=== PATIENT | female | born 1970 | race Caucasian/White ===

== ENCOUNTER 2020-01-12 14:58 | Outpatient (CLI) | payer OTHER, SELFPAY ==
--- NOTE | ~2020-01-12 | MM_ITS ---
EXAMINATION: MM screening alexandra BI w cabrera HISTORY: Screening mammogram, family history of breast cancer in her mother. TECHNIQUE: Craniocaudal and mediolateral oblique 3-D tomosynthesis images were obtained and synthetic 2-D images were generated. CAD analysis was submitted and interpreted. COMPARISON: 08/01/2018, 01/03/2018, 12/28/2017, 12/28/2014 BREAST PARENCHYMAL COMPOSITION: The breasts are heterogeneously dense, which may obscure small masses . FINDINGS: RIGHT BREAST: There are punctate calcifications in the posterior third of the upper outer quadrant of the right breast. Patient was due for follow-up of these calcifications in January 2019. Given that the calcifications are without suspicious change since original diagnostic mammogram performed on 12/15, these are considered benign. There is a subareolar mass of the breast. LEFT BREAST: There is no evidence of suspicious mass, calcification, or architectural distortion to s uggest malignancy. There has been no significant interval change. IMPRESSION: 1. Subareolar right breast mass. 2. Additional mammographic views and possible breast ultrasound are recommended. BI-RADS Category 0: Incomplete: Needs additional imaging evaluation. Reviewed, dictated and finalized at location A. IMPRESSION: 1. Subareolar right breast mass. 2. Additional mammographic views and possible breast ultrasound are recommended . BI-RADS Category 0: Incomplete: Needs additional imaging evaluation.
== END 2020-01-12 14:59 | disposition home or self-care (01) ==
PROVIDERS: Visit Provider Obstetrics & Gynecology
DX: Z12.31 Encounter for screening mammogram for malignant neoplasm of breast (principal); N63.41 Unspecified lump in right breast, subareolar
CPT/HCPCS: 77063; 77067

== ENCOUNTER 2020-02-04 13:17 | Outpatient (CLI) | payer OTHER, SELFPAY ==
--- NOTE | ~2020-02-04 | MMUS_ITS ---
EXAMINATION: MM diagnostic mammo unilat RT, US breast RT limited HISTORY: Subareolar right breast mass reported on 01/12/2020 screening mammogram TECHNIQUE: Additional 3-D tomosynthesis images of were performed and synthetic 2-D images were genera fletcher. CAD analysis was submitted and interpreted. High resolution breast ultrasound was performed. COMPARISON subareolar right: 01/12/2020 bilateral digital screening mammogram 08/01/2018 and 01/03/2018 diagnostic right digital mammogram examinations 12/28/2017 bilateral digital screening mammogram BREAST PARENCHYMAL COMPOSITION: The breasts are heterogeneously dense, which may obscure small masses . FINDINGS: MAMMOGRAPHIC FINDINGS: No interval mass or architectural distortion of the right breast is evident compared to 12/28/2017. Mi nimal benign calcification. ULTRASOUND: No sonographic evidence of subareolar mass or abnormal shadowing is evident. IMPRESSION: 1. No mammographic evidence of malignancy 2. Routine annual mammographic screening is recommended. BI-RADS Category 2: Benign finding(s). Reviewed, dictated and finalized at location A. IMPRESSION: 1. No mammographic evidence of malignancy 2. Routine annual mammographic screening is recommended. BI-RADS Category 2: Benign finding(s).
== END 2020-02-04 13:18 | disposition home or self-care (01) ==
LOC: ANHIMG 13:18
PROVIDERS: Visit Provider Obstetrics & Gynecology
DX: R92.8 Other abnormal and inconclusive findings on diagnostic imaging of breast (principal)
CPT/HCPCS: 76642; 77065

== ENCOUNTER 2021-06-03 07:36 | Outpatient (CLI) | payer OTHER, SELFPAY ==
--- NOTE | ~2021-06-03 | MM_ITS ---
EXAMINATION: MM screening laexandra BI w cabrera HISTORY: Screening mammogram TECHNIQUE: Craniocaudal and mediolateral oblique 3-D tomosynthesis images were obtained and synthetic 2-D images were generated. CAD analysis was submitted and interpreted. COMPARISON: 02/04/2020 diagnostic right mammogram and limited right breast ultrasound 12/0201/12/2020 bilateral digital screening mammogram / diagnostic right mammogram 01/03/2018 diagnostic right mammogram 12/28/2017 bilateral screening mammogram BREAST PARENCHYMAL COMPOSITION: The breasts are heterogeneously dense, which may obscure small masses . FINDINGS: There is no evidence of suspicious mass, calcification, or architectural distortion to sugg est malignancy in either breast. There has been no suspicious interval change. IMPRESSION: 1. No mammographic evidence of malignancy. 2. Recommend routine screening mammography in one year. BI-RADS Category 1: Negative Reviewed, dictated and finalized at location A. BODY INSPECTOR
== END 2021-06-03 07:37 | disposition home or self-care (01) ==
LOC: ANHIMG 07:38
PROVIDERS: Visit Provider Obstetrics & Gynecology
DX: Z12.31 Encounter for screening mammogram for malignant neoplasm of breast (principal)
CPT/HCPCS: 77063; 77067

== ENCOUNTER 2022-09-19 08:13 | Outpatient (CLI) | payer OTHER, SELFPAY ==
--- NOTE | ~2022-09-19 | MM_ITS ---
EXAMINATION: MM screening alexandra BI w cabrera HISTORY: Screening TECHNIQUE: Craniocaudal and mediolateral oblique 3-D tomosynthesis images were obtained and synthetic 2-D images were generated. CAD analysis was submitted and interpreted. COMPARISON: Comparison to multiple prior studies sequentially, with oldest reviewed study dated 12/28. BREAST PARENCHYMAL COMPOSITION: The breasts are heterogeneously dense, which may obscure small masses FINDINGS: There is no evidence of suspicious mass, calcification, or architectural distortion to sugg est malignancy in either breast. There has been no suspicious interval change. IMPRESSION: 1. No mammographic evidence of malignancy. 2. Recommend routine screening mammography in one year. BI-RADS Category 1: Negative Reviewed, dictated and finalized at location A.
== END 2022-09-19 08:14 | disposition home or self-care (01) ==
LOC: ANHIMG 08:15
PROVIDERS: Visit Provider Obstetrics & Gynecology
DX: Z12.31 Encounter for screening mammogram for malignant neoplasm of breast (principal)
CPT/HCPCS: 77063; 77067

== ENCOUNTER 2023-04-11 06:41 | Outpatient (CLI) | payer OTHER, SELFPAY ==
--- NOTE | ~2023-04-11 | MR_ITS ---
EXAMINATION: MR brain IAC wo/w con DATE: 04/11/2023 07:54 INDICATION: Sensorineural hearing loss, asymmetrical. TECHNIQUE: Magnetic resonance imaging (MRI) of the brain, brainstem, and internal auditory canals was performed without and with 10 mL MultiHance intravenous contrast. COMPARISON: None. FINDINGS: There are scattered areas of nonspecific increased T2-weighted signal intensity in the cere bral white matter, which is within normal limits for the patient's age. There is no intracranial hemo rrhage, acute infarction, or abnormal intracranial mass lesion. The ventricles are normal in size. Th ere is a mucous retention cyst in left maxillary sinus. The orbits are normal. The internal auditory canals and inner ears and tympanic cavities are normal. The mastoid air cells are normal. IMPRESSION: 1. Normal aging brain. Reviewed, dictated and finalized at location A. SITION OF CARE SPECIALIST IMPRESSION: 1. Normal aging brain.
== END 2023-04-11 06:42 | disposition home or self-care (01) ==
PROVIDERS: Visit Provider Otolaryngology
DX: H90.3 Sensorineural hearing loss, bilateral (principal)
CPT/HCPCS: 70553; A9577

== ENCOUNTER 2024-08-05 10:02 | Outpatient (CLI) | payer OTHER, SELFPAY ==
--- NOTE | ~2024-08-05 | MM_ITS ---
EXAMINATION: MM screening alexandra BI w cabrera HISTORY: Screening TECHNIQUE: Craniocaudal and mediolateral oblique 3-D tomosynthesis images were obtained and synthetic 2-D images were generated. CAD analysis was submitted and interpreted. COMPARISON: Comparison to multiple prior studies sequentially, with oldest reviewed study dated 01/03. BREAST PARENCHYMAL COMPOSITION: Dense: The breasts are heterogeneously dense, which may obscure small masses FINDINGS: There is no evidence of suspicious mass, calcification, or architectural distortion to sugg est malignancy in either breast. There has been no suspicious interval change. IMPRESSION: 1. No mammographic evidence of malignancy. 2. Recommend routine screening mammography in one year. BI-RADS Category 1: Negative Reviewed, dictated and finalized at location A.
--- OUTSIDE RECORDS SUMMARY | 2024-08-05 11:28 | XMS_ITS | Patient Health Record ---
Author Organization [facility] Address [address] [place] [address] Care Team Providers Care Director Risk Name Role Phone Koby No Primary Care Provider ALLERGIES No Known Allergies REASON FOR REFERRAL No Information MEDICATIONS Medication SIG (Take, Route, Frequency, Duration) Notes Start Date End Date Status Medrol 4 MG as directed Orally Daily 12/21/2022 Active SOCIAL HISTORY Tobacco Use: Social History Observation Description Date Details (start date - stop date) Current Smoker 04/15/1991 - NA Sex Assigned At : Social History Observation Description Sex Assigned At Unknown Tobacco Use/Smoking Question Answer Notes Are you a current user When did you start using? 04/15/1991 How often do you smoke cigarettes? every day How many cigarettes a day do you smoke? 6-10 How soon after you wake up d o you smoke your first cigarette? after 60 minutes Are you interested in quitting? Thinking about q uitting PROBLEMS Problem Type ICD Code Onset Dates Problem Status W/U Status Risk SNOMED Code Notes Problem Seasonal allergies (J30.2) Active confirmed [id number] PLAN OF TREATMENT No Information Insurance Providers Payer Name Payer Address Payer Phone Subscriber Number Group Number Insured Name Patient Relationship to Insured Coverage Start Date Coverage End Date [employer] [place] [place] [employer] [address] [place] [address] [id number] Mariano Benoita Self - patient is the insured MEDICAL (GENERAL) HISTORY Surgical History Surgery Date(Month/Year) Right Carpal Tunnel 2022 2010 2006
--- OUTSIDE RECORDS SUMMARY | 2024-08-05 11:28 | XMS_ITS | Clinical Summary ---
Author Organization [facility] [facility] Address [address] [place] [address] Care Team Providers Care Rn Placement Name Role Phone Joan Gordillo MD Primary Care Provider Source Comments [facility] [facility],non-owned Affiliates and Associated Physician Practices is amultiple site organization consisting of ambulatory clinics and hospital sitesin [place] and [place]. This disclosure is being madepursuant to the Care Everywhere program and may not contain all information available regarding this patient. Last updated 18.[facility] Social History Tobacco Use Types Packs/Day Years Used Date Smoking Tobacco: Never Assessed Comments Unknown Sex and Gender Information Value Date Recorded Sex Assigned at Not on file Legal Sex Female 1:28 PM CDT Gender Identity Not on file Sexual Orientation Not on file Plan of Treatment Health Maintenance Due Date Last Done Comments COLOGUARD (AGES 45-75) - COL ON CA SCREENING 1970 COLON MONITORING 1970 COLONOSCOPY - COLON CA SCREENING 1970 CT COLONOGRAPHY - COLON CA SCREENING 1970 Colorectal Cancer Screening 1970 FIT - COLON CA SCREENING 1970 FLEX SIG - COLON CA SCREENING 1970 LIPID TESTING 1970 MAMMOGRAM 1970 PAP SMEAR 1970 HIV SCREENING 1985 HEPATITIS C SCREENING 10/22/1988 DTAP/TDAP/TD VACCINES (1 - Tdap) 1989 HEPATITIS B VACCINE (1 of 3 - 19+ 3-dose series) 1989 PNEUMOCOCCAL VACCINE 50+ (1 of 1 - PCV) 2020 ZOSTER VACCINE (1 of 2) 2020 COVID-19 VACCINE (1 - 2023-2 5 season) 2023 DEPRESSION SCREENING 04/15/2024 INFLUENZA VACCINE (Season Ended) 2024 HIB VACCINE Aged Out No longer eligi ble based on patient's age to complete this topic HPV VACCINE Aged Out No longer eligi ble based on patient's age to complete this topic MENINGOCOCCAL (Group B) VACC INE SHARED DECISION-MAKING Aged Out No longer eligibl e based on patient's age to complete this topic MENINGOCOCCAL GROUPS A/C/Y/W VACCINE Aged Out No longer eligible b ased on patient's age to complete this topic PNEUMOCOCCAL VACCINE Aged Out No long er eligible based on patient's age to complete this topic Care Teams Rn Placement Relationship Specialty Start Date End Date Joan Gordillo MD PCP - General 10/13/19
--- OUTSIDE RECORDS SUMMARY | 2024-08-05 11:28 | XMS_ITS | Clinical Summary ---
Author Organization [facility] Address [address] [place] [address] Phone Care Team Providers Care Tourism Radio Presenter Name Role Phone Joan Gordillo MD Primary Care Provider Allergies No known active allergies Medications ETHYNODIOL D-ETHINYL ESTRADIOL (ZOVIA 35E, 28, PO) Take by mouth. Active RIZATRIPTAN BENZOATE (MAXALT ORAL) Take by mouth. Active Active Problems Patient Care Coordination No te Formatting of this note migh t be different from the original. Primary Care: Joan Gordillo MD Referring Provider: Joan Gordillo [address] [place] [address] OBGYN: Dr. 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 Family history of breast cancer in mother 2009 Family History Medical History Relation Name Comments Breast Cancer Maternal Grandmother dx @ 6 0 y/o Diabetes Maternal Grandmother Diabetes Maternal Uncle Breast Cancer Mother dx @ 57 y/o Ovarian Cancer Neg Hx Relation Name Status Comments Maternal Grandmother Maternal Uncle Mother Social History Tobacco Use Types Packs/Day Years Used Date Smoking Tobacco: Never Alcohol Use Standard Drinks/Week Comments No 0 (1 standard drink = 0.6 oz pur e alcohol) Comments Unknown Sex and Gender Information Value Date Recorded Sex Assigned at Not on file Legal 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 Gender Identity Not on file Sexual Orientation Not on file Last Filed Vital Signs Vital Sign Reading Time Taken Comments Blood Pressure 122/80 12/30/2009 9:01 AM CDT Pulse - - Temperature - - Respiratory Rate - - Oxygen Saturation - - Inhaled Oxygen Concentration - - Weight 55.3 kg (122 lb) 12/30/2009 9:01 AM CDT Height 160 cm (5' 3 ) 12/30/2009 9:01 AM CDT Body Mass Index 21.61 12/30/2009 9:01 AM CDT Plan of Treatment Health Maintenance Due Date Last Done Comments DTAP/TDAP/TD VACCINES (1 - Tdap) 1989 HEPATITIS B VACCINES (1 of 3 - 19+ 3-dose series) 1989 HPV/Cotest (21-29) 10/28/1991 CERVICAL CANCER SCREENING 2000 HPV/Cotest (30-65) 2000 PAP SMEAR 2000 BREAST CANCER SCREENING 12/30/2010 12/30/2009, 09/18 COLORECTAL SCREENING 10/28/2015 Colorectal Cancer Screening 10/28/2015 FIT-DNA Q 3 years 10/28/2015 FIT/FOBT Q 1 year 10/28/2015 Flex Sig/CT Colonography Q 5 years 10/28/2015 ZOSTER VACCINE (1 of 2) 2020 INFLUENZA VACCINE (#1) 2023 Procedures Procedure Name Priority Date/Time Associated Diagnosis Comments MAMMO DIAGNOSTIC BILATERAL W OR WO CAD Routine 12/30/2009 9:41 AM CDT Other screening mammogram from Last 3 Months or Most Recently Relevant to Health Maintenance Results * MAMMO DIGITAL DIAG BILAT (12/30/2009 9:41 AM CDT) Anatomical Region Laterality Modality Breast Bilateral Mammography Addenda Addendum by Venita Quiroga on 01/16/2010 7:52 AM CDT The patient's prior studies from Cancer and Breast have just been made available for comparison. When compared with the previous examinations, the breast parenchymal pattern is stable. No new dominant masses, areas of asymmetry, of suspicious microcalcifications are identified within either breast. CAD was utilized. OVERALL ASSESSMENT: BIRADS category 1 - Negative Recommendation: Annual mammography is recommended. Narrative 01/02/2010 10:50 AM CDT BILATERAL FULL FIELD DIGITAL DIAGNOSTIC MAMMOGRAMS WITH COMPUTER AIDED DETECTION 12/30/2009 HISTORY: The patient's mother was diagnosed with breast cancer. TECHNIQUE: Bilateral full field digital diagnostic mammograms were obtained. CAD was utilized. No prior studies are available for comparison as this is the patient's baseline study. BREAST COMPOSITION: Heterogeneously dense, which lowers the sensitivity of mammography. FINDINGS: No dominant masses, areas of asymmetry or suspicious clustered microcalcifications are identified within either breast. CAD was utilized. OVERALL ASSESSMENT: BIRADS category 1 - Negative. RECOMMENDATION: Annual mammography is recommended. Procedure Note Venita Quiroga - 01/16/2010 BILATERAL FULL FIELD DIGITAL DIAGNOSTIC MAMMOGRAMS WITH COMPUTER AIDEDDETECTION 12/30/2009 HISTORY: The patient's mother was diagnosed with breast cancer. TECHNIQUE: Bilateral full field digital diagnostic mammograms wereobtained. CAD was utilized. No prior studies are available for comparisonas this is the patient's baseline study. BREAST COMPOSITION: Heterogeneously dense, which lowers the sensitivity ofmammography. FINDINGS: No dominant masses, areas of asymmetry or suspicious clusteredmicrocalcifications are identified within either breast. CAD wasutilized. OVERALL ASSESSMENT: BIRADS category 1 - Negative. RECOMMENDATION: Annual mammography is recommended. us Marlys Ellsworth MD MAMMO ORDERABLES Edited Resul t - Final from Last 3 Months or Most Recently Relevant to Health Maintenance Care Teams Tourism Radio Presenter Relationship Specialty Start Date End Date Joan Gordillo MD [address] [place] [address] PCP - General Internal Medicine 12/30/09
--- OUTSIDE RECORDS SUMMARY | 2024-08-05 11:28 | XMS_ITS | Clinical Summary ---
Author Organization [facility] Address [address] [place] [address] Phone Care Team Providers Care Deputy Fire Chief Name Role Phone Candice Flores MD Primary Care Provider Mina Gutierrez MD Unavailable [phone] Koby Granda MD Unavailable [phone] Allergies No known active allergies Medications loratadine-pseudo ephedrine (CLARITIN-D 12 HOUR) 5-120 mg tablet extended release 12 hr take 1 tablet by oral route every 12 hours 0 0 7 Active fluticasone propionate (FLONASE) 50 mcg/actuation nasal spray Administer 2 sprays into each nostril daily Active multivitamin tabletIndications :Vitamin Deficiency Prevention Take 1 tablet by mouth Active aspirin 81 mg enteric coated tabletIndications :Coronary artery calcification seen on CAT scan Take 1 tablet (81 mg total) by mouth daily 4 Active Active Problems Problem Noted Date Diagnosed Date Sinus drainage 10/29/2023 Assessment & Plan (10/29/2023 6:41 PM CDT): Mild. Patient's thinks it is allergies. Continue antihistamines. Monitor. If worsening, magnesium consider viral URI. Supportive care recommended. Discussed signs to seek evaluation Coronary artery calcification seen on CAT scan 0 08/05/2023 Assessment & Plan (10/29/2023 6:39 PM CDT): Chronic incidental finding on recent CT chest. Given coronary artery calcifications in addition to atherosclerosis in the aorta noted she is at increased risk of cardiovascular disease. Full risk factor modification recommended. Start ASA 81 mg daily. We are going to check a cholesterol level. Based on results we plan to start on least moderate to high intensity cholesterol medication. We should target least an LDL less than 70 with optimal less than 55. This was discussed with the patient. Patient denies any current cardiac chest pain equivalent Ground glass opacity present on imaging of lung 08/05/2023 Assessment & Plan (10/29/2023 6:40 PM CDT): Noted on CT chest within the apex. May have been postinfectious or inflammatory. Monitor respiratory issues. We will plan low-dose CT in 1 year to monitor her lungs given her smoking history. If more significant symptoms develop between now and then we may consider repeat CT sooner Seasonal allergies 07/22/2023 History of malignant melanoma of skin 07/22/2023 Overview (07/22/2023): Previous excision. Sees Dr. Granda with Dermatology routinely for skin evaluation Sensorineural hearing loss, asymmetrical 023 Other emphysema 11/28/2017 Assessment & Plan (10/29/2023 6:39 PM CDT): Asymptomatic. Seen on imaging. Monitor. Encouraged smoking cessation. If develops respiratory symptoms and we will start on inhalers Assessment & Plan (07/22/2023 5:42 PM CDT): Borderline on PFTs in 2018. Recent chest x-ray with emphysematous changes. Get updated CT to assess lungs given other concerns. Depending on findings may consider updated PFTs to further excess. Patient denies frequent daytime symptoms. Tobacco abuse 11/28/2017 Assessment & Plan (10/29/2023 6:39 PM CDT): Chronic. Suboptimally controlled. Counseled to quit. At increased risk for lung cancer so would qualify for annual low-dose CT screening. It has had full CT lungs recently we can defer LDCT this year Environmental allergies 11/28/2017 Actinic keratosis 11/05/2012 Family history of breast cancer in mother 2009 Migraine 10/29/2008 Overview (07/20/2016): MIGRNE UNSP WO NTRC MGRN Resolved Problems Problem Noted Date Diagnosed Date Resolved Date Dizziness and giddiness 02/23/2023 04/0 11/2023 Breast mass 03/25/2020 03/25/2020 Abnormal mammogram 03/25/2020 4 Pharyngitis due to Streptococcus species 11/28/2017 07/22/2023 Influenza A 02/15/2017 10/10/2017 Cough 02/15/2017 07/22/2023 Basal cell carcinoma (BCC) of skin of trunk 10/21/2013 07/22/2023 Senile lentigo 09/23/2013 07/22/2023 Keratosis, senilis 05/08/2013 4 Skin neoplasm 05/08/2013 07/22/2023 Essential hypertension 12/30/200907/21 Malignant basal cell neoplasm of skin 12/30/2009 07/22/2023 Overview (02/08/2023): Left side nose and chest Migraine 12/30/2009 07/22/2023 Immunizations Immunization Administration Dates Next Due Influenza, Unspecified 04/15/2023(Deferr ed: Patient Refused),04/15/2022(Deferred: Patient Refused),03/03/2017,02/15/2017(Deferred: Patient Refused),02/15/2017(Deferred: Patient Refused),02/15/2017(Deferred: Patient Refused) Pneumococcal Conjugate Pcv20 10/29/2023 Pneumococcal Polysaccharide PPV23 11/28/2017 Tdap 10/29/2023,10/29/2008 Surgical History Surgery Date Site/Laterality Comments OTHER SURGICAL HISTORY 90s s/p sinus surgery OTHER SURGICAL HISTORY Malignant melanoma: last visit 08/20 OTHER SURGICAL HISTORY Hypertension: resolved, not clear why, poss stress OTHER SURGICAL HISTORY Malignant melanoma: Surgical excision TUBAL LIGATION Bilateral tubal ligation OTHER SURGICAL HISTORY Menorrhagia: Novasure SECTION SINUS SURGERY CARPAL TUNNEL RELEASE Medical History Medical History Date Comments Hx Other Medical Headache, migra ine Hx Other Medical Hypoglycemia Irritable bowel syndrome Irritab le bowel disease Hx Other Medical Fibrocystic dis ease Malignant melanoma (HCC) 2002 Maligna nt melanoma Hypertension 2005 Hypertension Hx Other Medical Migraines Hx Other Medical Menorrhagia; Co mments: CML 10/25/2013 - Vaginitis Vaginal infectio ns, recurrent Hx Other Medical 2016 uterine ablatio n; Comments: CAH 04/18/2016 - Cardiac arrest (HCC) transient c ardiac pause during . Cancer (HCC) Allergic rhinitis HL (hearing loss) Tinnitus Dizziness Chickenpox Basal cell carcinoma (BCC) o f skin of trunk 10/21/2013 Family History Medical History Relation Name Comments Hypertension Father Hypertension; Other Father Back surgeries; Throat cancer Father's Brother Breast cancer Maternal Grandmother Cancer , breast; Diabetes type II Maternal Grandmother D M Type II; Breast cancer Mother Cancer -breast ; /Cancer -breast; /Cancer, breast; Cancer Mother Migraines Mother Migraines; /Samuel dora; Stomach cancer Mother's Brother 2 cancer, gastric; Prostate cancer Paternal Grandfather Migraines Sister 2 Migraines; Migraines Sister 3 Migraines; Colon cancer Neg Hx Coronary artery disease Neg Hx Relation Name Status Comments Father Father's Brother Maternal Grandmother Alive Mother Alive Mother's Brother 1 Alive Mother's Brother 2 Paternal Grandfather Sister 1 Alive Sister 2 Sister 3 Social History Tobacco Use Types Packs/Day Years Used Date Smoking Tobacco: Former Cigarettes 0.8 29.9 1 994 - 03/15/2023 Smokeless Tobacco: Never Tobacco Cessation:Counseling Given: Yes Comments:Tapered off cigarettes but now vapng. Working on taping off Alcohol Use Standard Drinks/Week Comments No 0 (1 standard drink = 0.6 oz pur e alcohol) AUDIT-C Answer Date Recorded Q1: How often do you have a drink containing alcohol? Never 10/29/2023 Q2: How many drinks containi ng alcohol do you have on a typical day when you are drinking? Patient does not drink Q3: How often do you have si x or more drinks on one occasion? 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 Not on file Not on file Obstetrics History Last Filed Vital Signs Vital Sign Reading Time Taken Comments Blood Pressure 112/62 10/29/2023 11:41 AM CDT Pulse 84 10/29/2023 11:41 AM CDT Temperature 36.6 C (97.9 F) 10/29/2023 11:41 AM CDT Respiratory Rate 16 10/29/2023 11:41 AM CDT Oxygen Saturation 98% 10/29/2023 11:41 AM CDT Inhaled Oxygen Concentration - - Weight 58.8 kg (129 lb 9.6 oz) 10/29/2023 11:41 AM CDT Height 160 cm (5' 3 ) 10/29/2023 11:41 AM CDT Body Mass Index 22.96 10/29/2023 11:41 AM CDT Plan of Treatment Health Maintenance Due Date Last Done Comments Hepatitis C Screening 1970 Hepatitis B Screening 1988 Cervical Cancer Screening 07/22/2014 07/22/2013, 12/2013 Zoster Vaccine (1 of 2) 2020 Breast Cancer Screening-Mammogram 09/20/2023 09/19/2022, 01/03/2018, 12/18/2014 Lung Cancer Screening 08/03/2024 08/04/2023 Depression Screening 10/28/2024 10/29/2023, 07/22/2023, 11/28/2017, Additional history exists Regular Well Visit/Exam 18-64 10/28/2024 10/29/2023, 10/10/2017 Influenza Vaccine (Season Ended) 2024 03/03/20 17 Colon Cancer Screening-DNA Stool 02/14/2025 02/15/20, 02/14/2022 DTaP/Tdap/Td Vaccine (3 - Td or Tdap) 10/28/2033 10/29/2023, 10/29/2008 Pneumococcal vaccine <65 Completed 10/29/2023, 11/13 Procedures Procedure Name Priority Date/Time Associated Diagnosis Comments HM MAMMOGRAPHY Routine 09/19/2022 DNA STOOL Routine 02/14/2022 THINPREP IMAGING PAP AND HPV MRNA E6/E7 REFLEX HPV 16,18/45 Routine 07/22/2013 12:00 AM CDT from Last 3 Months or Most Recently Relevant to Health Maintenance Results * HM MAMMOGRAPHY (09/19/2022) Mammography Normal us Historical Provider HEALTH MAINTENANCE Final Result * HM DNA STOOL (02/14/2022) Scribed Stool DNA - Cologuard Negative Comment:care everywhere Historical Provider HEALTH MAINTENANCE Final Result * (ABNORMAL) ThinPrep Imaging Pap and HPV mRNA E6/E7 Reflex HPV 16,18/45 (07/22/2013 12:00 AM CDT) SOURCE: SEE NOTE [facility] HISTORICAL RESULTS Comment:Cervix, Endocervix CLINICAL INFORMATION: SEE NOTE [facility] HISTORICAL RESULTS Comment:Information not prov ided LMP SEE NOTE [facility] HISTORICAL RESULTS Comment:Information not prov ided Previous Pap SEE NOTE [facility] HISTORICAL RESULTS Comment:Information not prov ided Prev. Bx SEE NOTE [facility] HISTORICAL RESULTS Comment:Information not prov ided Pap, specimen adequacy SEE NOTE [facility] HISTORICAL RESULTS Comment: Satisfactory for evaluation. Endocervical/transformation zone component present. Age and/or menstrual status not provided Pap, general categorization SEE NOTE(A) [facility] HISTORICAL RESULTS Comment:EPITHELIAL CELL ABNO RMALITY HPV interp SEE NOTE(A) [facility] HISTORICAL RESULTS Comment: Atypical Squamous Cells of Undetermined Significance (ASC-US) Lactobacillus species SEE NOTE [facility] HISTORICAL RESULTS Comment: This Pap test has been evaluated with computer assisted technology. Suggest clinical correlation and follow-up as clinically appropriate Supervisor Salvage SEE NOTE [facility] HISTORICAL RESULTS Comment:FRANKKSHAVON(ASCP) Pathologist SEE NOTE [facility] HISTORICAL RESULTS Comment: Urban Lyons M.D., Board Certified in Anatomic Pathology and Cytopathology. (electronic signature) Test performed at [facility] [address] Director: EDSON OG MD Infection: SEE NOTE [facility] HISTORICAL RESULTS Comment: Fungal organisms morphologically consistent with Leta spp. 07/22/2013 Traci Tran MD LAB CYTOLOGY ORDERABLES Fin al Result [facility] HISTORICAL RESULTS from Last 3 Months or Most Recently Relevant to Health Maintenance Insurance [facility] Care Teams Deputy Fire Chief Relationship Specialty Start Date End Date Canidce Flores MD PCP - General Family Medicine 07/22/23 Mina Gutierrez MD [address] [facility] [address] [place] [address] Referring Physician Obstetrics and Gynecology 07/22/23 Koby Granda MD [address] [facility] [address] [place] [address] Referring Physician Dermatology 07/22/23
--- OUTSIDE RECORDS SUMMARY | 2024-08-05 11:28 | XMS_ITS | Encounter Summary ---
Author Organization [facility] Address [address] [place] [address] Care Team Providers Care Powder Worker Tnt Name Role Phone Joan Gordillo MD Primary Care Provider Encounter Details Date Type Department Care Team (Late st Contact Info) Description 10/13/2019 Lab Requisition [facility] [address] [place] [id number] Koby Granda MD [address] [place] [id number] Social History Tobacco Use Types Packs/Day Years Used Date Smoking Tobacco: Never Assessed Comments Unknown Sex and Gender Information Value Date Recorded Sex Assigned at Not on file Legal Sex Female 1:28 PM CDT Gender Identity Not on file Sexual Orientation Not on file documented as of this encounter Plan of Treatment Not on file documented as of this encounter Procedures Procedure Name Priority Date/Time Associated Diagnosis Comments DERMATOPATHOLOGY Routine 10/12/2019 12:0 0 AM CDT documented in this encounter Results * DERMATOPATHOLOGY (10/12/2019 12:00 AM CDT) Case Report Dermatopathology Report Case: [id number] Authorizing Provider: Koby Granda MD Collected: 10/12/2019 12:00 AM Ordering Location: [facility] Received: 10/13/2019 01:51 PM Pathologist: Lilly Weber MD Specimen: Skin, right upper back 0 3:23 PM CDT DERMATOPATHOLOGY LABORATORY Final Diagnosis Specimen A. SKIN, right upper back: PIGMENTED SEBORRHEIC KERATOSIS (L82.1) 0 3:23 PM CDT DERMATOPATHOLOGY LABORATORY Clinical History SK vs nevus R/O atypia 0 3:23 PM CDT DERMATOPATHOLOGY LABORATORY Gross Description Specimen A: Received is one formalin filled container labeled with the patient's name and designated right upper back. The specimen consists of a shave biopsy measuring 7x6x2 mm. Jar 0. 0 3:23 PM CDT DERMATOPATHOLOGY LABORATORY Microscopic Description Specimen A. SKIN, right upper back: Sections show an acanthotic lesion composed of relatively uniform keratinocytes. There is hyperkeratosis and pseudo horn cysts. Pigment is present in the keratinocytes composing this tumor. 0 3:23 PM CDT DERMATOPATHOLOGY LABORATORY Disclaimer An external and internal positive and negative controls are appropriate for the histochemical, immunohistochemical and immunofluorescence stain(s) in this case (if any), except where stated explicitly. The performance characteristics of the stain(s) cited in this report were developed and its performance characteristic determined by the Dermatopathology Laboratory at [facility], directed by Dr. Breanne Davis. These tests need not be, and therefore are not, approved by the [place] Food and Drug Administration. The tests are used for clinical purposes. Billing Codes Specimen Charges Stain Charges 00857 1 0 3:23 PM CDT DERMATOPATHOLOGY LABORATORY Embedded Images 0 3:23 PM CDT DERMATOPATHOLOGY LABORATORY Pathology/Cytolog y TISSUE SPECIMEN FROM SKIN / Unknown 10/12/2019 10/13/2019 1:51 PM CDT Koby Granda MD LAB - PATHOLOGY/CYTOLOGY ORDERA BLES Final Result DERMATOPATHOLOGY LABORATORY [facility] - Department of Dermatology Installations [employer] [place] [address], [facility] [phone] documented in this encounter Visit Diagnoses Not on filedocumented in this encounter Care Teams Powder Worker Tnt Relationship Specialty Start Date End Date Joan Gordillo MD PCP - General 10/13/19 documented as of this encounter
--- OUTSIDE RECORDS SUMMARY | 2024-08-05 11:28 | XMS_ITS | Referral Summary ---
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 Gender Identity Not on file Sexual Orientation Not on file 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 Not on file Not on file Last Filed Vital Signs [...] 10/29/2023 11:41 AM CDT Plan of Treatment Not on file Procedures Procedure Name Priority Date/Time Associated Diagnosis Comments MAMMOGRAPHY Routine 09/19/2022 DNA STOOL Routine 02/14/2022 THINPREP IMAGING PAP AND HPV MRNA E6/E7 REFLEX HPV 16,18/45 Routine 07/22/2013 12:00 AM CDT from Last 3 Months or Most Recently Relevant to Health Maintenance Results * MAMMOGRAPHY (09/19/2022) Mammography Normal us Historical Provider HEALTH MAINTENANCE Final Result * DNA STOOL (02/14/2022) Scribed Stool DNA - Cologuard Negative Comment:care everywhere us Historical Provider HEALTH MAINTENANCE Final Result [...] clinical correlation and follow-up as clinically appropriate Pharmacy District Manager SEE NOTE [facility] HISTORICAL RESULTS Comment:SHAVON STANTON(ASCP) Pathologist SEE NOTE [facility] HISTORICAL RESULTS Comment: Urban Lyons M.D., Board Certified in Anatomic Pathology and Cytopathology. (electronic signature) Test performed at [facility] [address] Director: EDSON OG MD Infection: SEE NOTE [facility] HISTORICAL RESULTS Comment: Fungal organisms morphologically consistent with Leta spp. 07/22/2013 us Traci Tran MD LAB CYTOLOGY ORDERABLES Fin al Result [facility] HISTORICAL RESULTS from Last 3 Months or Most Recently Relevant to Health Maintenance Insurance [facility] HMO/PPO Address: [address] [place] [phone] [facility] HMO/PPO Address: [address] [place], [place] [phone] Care Teams Life Cycle Assessment Analyst Relationship Specialty Start Date End Date Candice Flores MD PCP - General Family Medicine 07/22/23 Mina Gutierrez MD [address] [place] [address] Referring Physician Obstetrics and Gynecology 07/22/23 Koby Granda MD [address] [address] Referring Physician Dermatology 07/22/23
== END 2024-08-05 10:03 | disposition home or self-care (01) ==
LOC: CHSIMG 10:06
PROVIDERS: PCP Obstetrics & Gynecology; Visit Provider Family Medicine Sports Medicine
DX: Z12.31 Encounter for screening mammogram for malignant neoplasm of breast (principal)
CPT/HCPCS: 77063; 77067

== ENCOUNTER 2025-01-07 07:08 | Outpatient (CLI) | payer OTHER, SELFPAY ==
--- OUTSIDE RECORDS SUMMARY | 2025-01-07 07:10 | XMS_ITS | Clinical Summary ---
Author Organization [facility] Address [address] [facility] [place] [address] Care Team Providers Care Fur Comber Name Role Phone Joan Gordillo MD Primary Care Provider Source Comments [facility],non-owned Affiliates and Associated Physician Practices is amultiple site organization consisting of ambulatory clinics and hospital sitesin [place], [place], [place] and [place]. This disclosure is being madepursuant to the Care Everywhere program and may not contain all information available regarding this patient. Last updated 18.[facility] Social History Tobacco Use Types Packs/Day Years [...] SCREENING 1970 LIPID TESTING 1970 MAMMOGRAM 1970 HIV SCREENING 1985 HEPATITIS C SCREENING 10/22/1988 DTAP/TDAP/TD VACCINES (1 - Tdap) 1989 HEPATITIS B VACCINE (1 of 3 - 19+ 3-dose series) 1989 PNEUMOCOCCAL VACCINE 50+ (1 of 1 - PCV) 2020 ZOSTER VACCINE (1 of 2) 2020 DEPRESSION SCREENING 04/15/2024 COVID-19 VACCINE (1 - 2023-2 5 season) 2024 INFLUENZA VACCINE (#1) 2024 HIB VACCINE Aged Out No longer [...] age to complete this topic Care Teams Fur Comber Relationship Specialty Start Date End Date Joan Gordillo MD PCP - General 10/13/19
--- OUTSIDE RECORDS SUMMARY | 2025-01-07 07:11 | XMS_ITS | Clinical Summary ---
Author Organization [facility] Address [address] [place] [address] Phone Care Team Providers Care Avionics Installer Name Role Phone Joan Gordillo MD Primary Care Provider Allergies No known active allergies Medications ETHYNODIOL D-ETHINYL ESTRADIOL (ZOVIA 35E, 28, PO) Take by mouth. Active RIZATRIPTAN BENZOATE (MAXALT ORAL) Take by mouth. Active Active Problems Patient Care Coordination No te Formatting of this note migh t be different from the original. Primary Care: Joan Gordillo MD Referring Provider: Joan Gordillo [address] [facility] [address] [place] [address] OBGYN: Dr. 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 Gender Identity Not on file Sexual Orientation Not on file Last Filed Vital Signs Vital Sign Reading Time Taken Comments Blood Pressure 122/80 12/30/2009 9:01 AM CDT Pulse - - Temperature - - Respiratory Rate - - Oxygen Saturation - - Inhaled Oxygen Concentration - - Weight 55.3 kg (122 lb) 12/30/2009 9:01 AM CDT Height 160 cm (5' 3) 12/30/2009 9:01 AM CDT Body Mass Index [...] (1 of 2) 2020 INFLUENZA VACCINE (#1) 2024 Procedures Procedure Name Priority Date/Time Associated Diagnosis [...] Recently Relevant to Health Maintenance Care Teams Avionics Installer Relationship Specialty Start Date End Date oJan Gordillo MD [address] [place] [address] PCP - General Internal Medicine 12/30/09
--- OUTSIDE RECORDS SUMMARY | 2025-01-07 07:11 | XMS_ITS | Clinical Summary ---
Author Organization [facility] Address [address] [place] [address] Phone Care Team Providers Care Basket Weaver Name Role Phone Candice Flores MD Primary Care Provider Mina Gutierrez MD Unavailable [phone] Koby Granda MD Unavailable [phone] Allergies No known active allergies Medications [...] n; Comments: CAH 04/18/2016 - Cardiac arrest transient cardia c pause during . 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 (electronic signature) Test performed at [facility] [address] Director: JAE-LIEU VO,MD Infection: SEE NOTE [facility] HISTORICAL RESULTS Comment: Fungal organisms morphologically consistent with Leta spp. 07/22/2013 Traci Tran MD LAB CYTOLOGY ORDERABLES Fin al Result [facility] HISTORICAL RESULTS from Last 3 Months or Most Recently Relevant to Health Maintenance Insurance [facility] H[facility]/PPO Address: [address] [phone] [facility] HMO/PPO Address: [address] [place] [phone] Care Teams Basket Weaver Relationship Specialty Start Date End Date Candice Flores MD PCP - General Family Medicine 07/22/23 Mina Gutierrez MD [address] [facility] [address] [place] [address] Referring Physician Obstetrics and Gynecology 07/22/23 Koby Granda MD [address] [facility] [address] [place] [address] Referring Physician Dermatology 07/22/23
--- OUTSIDE RECORDS SUMMARY | 2025-01-07 07:11 | XMS_ITS | Patient Health Record ---
Author Organization [facility] Address [address] [place] [address] Care Team Providers Care Water Leak Repairer Name Role Phone Koby No Primary Care Provider [phone] ALLERGIES No Known Allergies REASON FOR REFERRAL [...] Notes Problem Seasonal allergies (J30.2) Active confirmed [id number] PLAN OF TREATMENT No Information Insurance Providers Payer Name Payer Address Payer Phone Subscriber Number Group Number Insured Name Patient Relationship to Insured Coverage Start Date Coverage End Date [employer] [place] [employer] [address] [place] [address] [phone] [id number] Kaycee Dang Self - patient is the insured MEDICAL (GENERAL) HISTORY Surgical History Surgery Date(Month/Year) Right Carpal Tunnel 2022 2010 2006
[2025-01-07 07:34] LABS: Hematocrit 39.4 % (37.0-47.0); Hemoglobin 12.8 g/dL (12.0-15.0); Mean Corpuscular HGB Conc 32.5 g/dl (32-36); Mean Corpuscular Hemoglobin 29.8 pg (26-34); Mean Corpuscular Volume 91.8 fl (80-100); Platelet Count Result 277 k/mm3 (150-375); Red Blood Count 4.29 M/mm3 (4.2-5.4); White Blood Count 5.6 K/mm3 (4.5-10.0)
[2025-01-07 07:56] LABS: Alanine Aminotransferase 13 U/L (6-35); Albumin Level 4.5 g/dL (3.5-5.1); Alkaline Phosphatase 68 U/L (38-126); Anion Gap 6 mmol/L (4-12); Aspartate Amino Transferase 24 U/L (14-36); Bilirubin,Total 0.8 mg/dL (0.2-1.3); Blood Urea Nitrogen 11 mg/dL (7-17); Calcium 9.2 mg/dL (8.4-10.2); Carbon Dioxide 29 mmol/L (22-30); Chloride 103 mmol/L (98-107); Cholesterol 272 mg/dL (0-200); Estimated Glomerular Filt Rate > 60; Glucose 86 mg/dL (65-110); HDL Direct 51 mg/dL; Potassium 4.0 mmol/L (3.4-5.0); Sodium 138 mmol/L (137-145); Total Protein 7.4 g/dL (6.3-8.2); Triglycerides 164 mg/dL (<150)
[2025-01-07 08:24] LABS: Thyroid Stimulating Hormone Reflex 1.170 uIU/mL (0.465-4.68)
[2025-01-07 08:50] LABS: Vitamin B12 655.0 pg/mL (239-931)
[2025-01-10 14:08] LABS: Estrogens, Total 47 pg/mL (.)
== END 2025-01-07 07:09 | disposition home or self-care (01) ==
LOC: ANHLAB 07:08
PROVIDERS: Visit Provider Obstetrics & Gynecology
DX: Z13.29 Encounter for screening for other suspected endocrine disorder (principal); Z13.0 Encounter for screening for diseases of the blood and blood-forming organs and certain disorders involving the immune mechanism; Z13.228 Encounter for screening for other metabolic disorders
CPT/HCPCS: 36415; 80053; 80061; 82607; 82672; 84443; 85027